=== PATIENT | female | born 1990 | race Caucasian/White ===

== ENCOUNTER 2020-01-02 21:29 | Emergency (ER) | payer SELFPAY ==
[2020-01-02] MEDS ORDERED: Acetaminophen/HYDROcodone 325-10 MG Tab PO ONE (21:30)
[2020-01-02] MEDS ORDERED: Ketorolac 30 MG/ML SDV IVPUSH ONE (22:01)
[2020-01-02] MEDS ORDERED: Sodium Chloride 0.9% 10 ML Syringe FLUSH PRN (22:01)
[2020-01-02] MEDS ORDERED: Lactated Ringers 1,000 ML IV ONE (22:01)
[2020-01-02] MEDS ORDERED: Morphine 4 MG/ML Syringe IVPUSH ONE (22:02)
[2020-01-02] MEDS ORDERED: Ondansetron 4 MG/2 ML SDV IV ONE (22:03)
[2020-01-02 22:18] LABS: ANION GAP 17.3 mEq/L (7-13)
--- NOTE | 2020-01-02 23:23 | CT ---
PROCEDURE INFORMATION: Exam: CT Abdomen And Pelvis Without Contrast Exam date and time: 01/02/2020 11:03 PM Age: 29 years old Clinical indication: Other: Right sided pain; Additional info: Suspected ureterolithiasis TECHNIQUE: Imaging protocol: Computed tomography of the abdomen and pelvis without contrast. Radiation optimization: All CT scans at this facility use at least one of these dose optimization techniques: automated exposure control; mA and/or kV adjustment per patient size (includes targeted exams where dose is matched to clinical indication); or iterative reconstruction. COMPARISON: No relevant prior studies available. FINDINGS: Lungs: Visualized lung bases are clear. Heart: Heart size normal. Mediastinal space: The visualized distal esophagus is normal. Liver: Normal size and contour. No mass lesions. No intrahepatic biliary ductal dilatation. Gallbladder and bile ducts: Normal. No calcified stones. No ductal dilation. Pancreas: Normal. No inflammatory changes or ductal dilation. Spleen: Normal. No splenomegaly. Adrenal glands: Normal. No adrenal mass. Kidneys and ureters: Moderate-severe right-sided hydronephrosis and hydroureter with an 8 x 5 x 5 mm distal right ureteral stone located about 1.5 cm from the right UVJ. Moderate right perinephric stranding and fluid. Punctate 1 mm nonobstructive left renal stone. No left-sided ureteral stones or hydronephrosis. Stomach and bowel: The stomach is grossly normal. The small bowel is normal with no evidence of obstruction. No acute colonic abnormalities. Appendix: The appendix is normal in caliber and demonstrates no evidence of appendicitis. Intraperitoneal space: Small amount of intrapelvic free fluid, within physiologic range for a young woman. No free air. Vasculature: No acute process. No abdominal aortic aneurysm. Lymph nodes: No adenopathy. Urinary bladder: Unremarkable as visualized. Reproductive: Unremarkable as visualized. Bones/joints: No acute osseous abnormalities. Soft tissues: Very small fatty umbilical hernia . No evidence of associated bowel herniation or bowel obstruction. IMPRESSION: 1. There is an 8 x 5 x 5 mm distal right ureteral stone with moderate-severe right-sided hydroureteronephrosis and perinephric stranding. 2. 1 mm nonobstructive left renal stone. 3. Small volume intrapelvic free fluid, within physiologic range for a young woman. 4. Small fatty umbilical hernia.
[2020-01-02] MEDS ORDERED: cefTRIAXone 1 GM in Sodium Chloride 0.9% 50 ML IV ONE (23:56)
--- NOTE | 2020-01-02 23:56 | EDM.PDOC ---
ED HPI GENERAL MEDICAL PROBLEM - General Chief Complaint: Back Pain or Injury Stated Complaint: lower back right side pain, vomiting Time Seen by Provider: 01/02/20 21:40 Source of Information: Reports: Patient - History of Present Illness INITIAL COMMENTS - FREE TEXT/NARRATIVE: Alma is a 29 year old woman who presents with 12 hour history of worsening R flank pain. She has also had nausea and vomiting all day today. She reports no burning with urination, no increased urinary frequency. Alma recently gave to her daughter, is currently . No fevers/chills, no diarrhea or constipation, no hematochezia or melena. Right Flank Pain Score (Numeric/FACES): 7 - Related Data Allergies Allergy/AdvReac Type Severity Reaction Status Date / Time No Known Allergies Allergy Verified 01/02/20 22:00 Home Meds: Home Meds Cefdinir [Omnicef] 300 mg PO BID #14 cap 01/02/20 [Rx] Hydrocodone/Acetaminophen [Hydrocodone-Acetamin 10-325 mg] 0.5 tab PO Q4H PRN #12 tablet 01/02/20 [Rx] Past Medical History HEENT History: Reports: None Cardiovascular History: Reports: None Respiratory History: Reports: None Gastrointestinal History: Reports: None Genitourinary History: Reports: UTI, Recurrent [employer] History: Reports: Musculoskeletal History: Reports: Back Pain, Chronic Neurological History: Reports: None Psychiatric History: Reports: None Endocrine/Metabolic History: Reports: None Hematologic History: Reports: None Immunologic History: Reports: None Oncologic (Cancer) History: Reports: None Dermatologic History: Reports: None - Infectious Disease History Infectious Disease History: Reports: None - Past Surgical History Head Surgeries/Procedures: Reports: None Social & Family History - Family History Family Medical History: No Pertinent Family History - Tobacco Use Tobacco Use Status *Q: Never Tobacco User Second Hand Smoke Exposure: No - Caffeine Use Caffeine Use: Reports: Coffee, Soda, Tea - Recreational Drug Use Recreational Drug Use: No ED ROS GENERAL - Review of Systems Review Of Systems: Comprehensive ROS is negative, except as noted in HPI. ED EXAM, RENAL/ - Physical Exam Exam: See Below Text/Narrative:: General: Alma is a 29 year old woman in no acute distress Oropharynx is clear, mucous membranes are moist Heart: regular rate and rhythm, no murmurs Lungs: clear to ascultation Abdomen: soft, non tender, she does have some mild CVA tenderness on the R with percussion Urinalysis showed 10-20 WBCs and many bacteria, but also many epithelial cells CT stone protocol shows an 8mm obstructing stone in the R ureter, with moderate to severe hydronephrosis and hydroureter on the right. Peripheral IV was started, she was given 1 liter LR bolus as well as 1 gram IV ceftriaxone She was also given 4 mg IV morphine initially, this was repeated 90 minutes later. Course - Vital Signs Last Recorded V/S: Last Vital Signs Temp 37.7 C 01/02/20 21:48 Pulse 102 H 01/02/20 21:48 Resp 18 01/02/20 21:48 BP 138/88 01/02/20 21:48 Pulse Ox 99 01/02/20 21:48 - Orders/Labs/Meds Orders: Active Orders 24 hr Category Date Time Status CULTURE URINE [RM] Routine Lab 01/02/20 21:42 Received Peripheral IV Insertion Adult [OM.PC] Routine Oth 01/02/20 22:01 Ordered Labs: Laboratory Tests 01/02/20 01/02/20 01/02/20 Range/Units 21:42 21:44 21:50 WBC 10.4 H (5.0-10.0) 10^3/uL RBC 4.75 (4.2-5.4) 10^6/uL Hgb 14.1 (12.0-16.0) g/dL Hct 41.7 (37.0-47.0) % MCV 87.8 (80-100) fL MCH 29.7 (27.0-34.0) pg MCHC 33.8 (33.0-35.0) g/dL Plt Count 367 (150-450) 10^3/uL Neut % (Auto) 68.6 (42.2-75.2) % Lymph % (Auto) 20.5 (20.5-50.1) % [place] % (Auto) 9.6 H (2-8) % Eos % (Auto) 1.0 (1.0-3.0) % Baso % (Auto) 0.3 (0.0-1.0) % Sodium (136-145) mmol/L Potassium (3.5-5.1) mmol/L Chloride (98-107) mmol/L Carbon Dioxide (21-32) mmol/L Anion Gap (7-13) mEq/L BUN (7-18) mg/dL Creatinine (0.55-1.02) mg/dL Est Cr Clr Drug Dosing mL/min Estimated GFR (MDRD) BUN/Creatinine Ratio (No establ ref range) Glucose (74-99) mg/dL Calcium (8.5-10.1) mg/dL Total Bilirubin (0.2-1.0) mg/dL AST (15-37) U/L ALT (14-59) U/L Alkaline Phosphatase (46-116) U/L Total Protein (6.4-8.2) g/dL Albumin (3.4-5.0) g/dL Globulin Albumin/Globulin Ratio Urine Color Yellow (YELLOW) Urine Appearance Slightly cloudy (CLEAR) Urine pH 6.0 (5.0-9.0) Ur Specific [place] >= 1.030 (1.005-1.030) Urine Protein 100 H (NEGATIVE) Urine Glucose (UA) Negative (NEGATIVE) Urine Ketones 80 H (NEGATIVE) Urine Occult Blood Large H (NEGATIVE) Urine Nitrite Negative (NEGATIVE) Urine Bilirubin Small H (NEGATIVE) Urine Urobilinogen 0.2 (0.2-1.0) mg/dL Ur Leukocyte Esterase Trace H (NEGATIVE) Urine RBC Semi-packed H /HPF Urine WBC 20-30 H (0-5/HPF) /HPF Ur Epithelial Cells Many H (NOT SEEN) /HPF Urine Bacteria Many H (0-FEW/HPF) /HPF Urine HCG, Qual Negative 01/01/ Range/Units 21:50 WBC (5.0-10.0) 10^3/uL RBC (4.2-5.4) 10^6/uL Hgb (12.0-16.0) g/dL Hct (37.0-47.0) % MCV (80-100) fL MCH (27.0-34.0) pg MCHC (33.0-35.0) g/dL Plt Count (150-450) 10^3/uL Neut % (Auto) (42.2-75.2) % Lymph % (Auto) (20.5-50.1) % [place] % (Auto) (2-8) % Eos % (Auto) (1.0-3.0) % Baso % (Auto) (0.0-1.0) % Sodium 139 (136-145) mmol/L Potassium 4.3 (3.5-5.1) mmol/L Chloride 101 (98-107) mmol/L Carbon Dioxide 25 (21-32) mmol/L Anion Gap 17.3 H (7-13) mEq/L BUN 22 H (7-18) mg/dL Creatinine 1.11 H (0.55-1.02) mg/dL Est Cr Clr Drug Dosing 71.27 mL/min Estimated GFR (MDRD) 59 BUN/Creatinine Ratio 19.8 (No establ ref range) Glucose 88 (74-99) mg/dL Calcium 9.1 (8.5-10.1) mg/dL Total Bilirubin 0.6 (0.2-1.0) mg/dL AST 40 H (15-37) U/L ALT 37 (14-59) U/L Alkaline Phosphatase 78 (46-116) U/L Total Protein 7.8 (6.4-8.2) g/dL Albumin 4.1 (3.4-5.0) g/dL Globulin 3.7 Albumin/Globulin Ratio 1.1 Urine Color (YELLOW) Urine Appearance (CLEAR) Urine pH (5.0-9.0) Ur Specific [place] (1.005-1.030) Urine Protein (NEGATIVE) Urine Glucose (UA) (NEGATIVE) Urine Ketones (NEGATIVE) Urine Occult Blood (NEGATIVE) Urine Nitrite (NEGATIVE) Urine Bilirubin (NEGATIVE) Urine Urobilinogen (0.2-1.0) mg/dL Ur Leukocyte Esterase (NEGATIVE) Urine RBC /HPF Urine WBC (0-5/HPF) /HPF Ur Epithelial Cells (NOT SEEN) /HPF Urine Bacteria (0-FEW/HPF) /HPF Urine HCG, Qual Meds: Medications Discontinued Medications Generic Name Dose Route Start Last Admin Trade Name Freq PRN Reason Stop Dose Admin Hydrocodone Bitart/Acetaminophen Confirm 01/03/20 01:02 01/03/20 01:07 Rachel 325-10 Mg Administered 01/03/20 01:03 Not Given Dose 4 tab .ROUTE .STK-MED ONE Lactated Ringer's 1,000 mls @ 999 mls/hr 01/02/20 22:01 01/02/20 22:24 Ringers, Lactated IV 11/15/20 23:01 999 mls/hr .BOLUS ONE Administration Ceftriaxone Sodium 1 gm/ 50 mls @ 100 mls/hr 01/02/20 23:56 01/03/20 00:03 Sodium Chloride IV 01/03/20 00:25 100 mls/hr ONETIME ONE Administration Ketorolac Tromethamine 30 mg 01/02/20 22:01 01/02/20 22:27 Toradol IVPUSH 01/02/20 22:02 30 mg ONETIME ONE Administration Morphine Sulfate 4 mg 01/02/20 22:02 01/02/20 22:30 Morphine IVPUSH 01/02/20 22:03 4 mg ONETIME ONE Administration Morphine Sulfate 4 mg 01/03/20 00:07 01/03/20 00:11 Morphine IVPUSH 01/03/20 00:08 4 mg ONETIME ONE Administration Ondansetron HCl 4 mg 01/02/20 22:03 01/02/20 22:25 Zofran IV 01/02/20 22:04 4 mg ONETIME ONE Administration Ondansetron HCl 4 mg 01/03/20 01:07 01/03/20 01:09 Zofran Odt PO 01/03/20 01:08 4 mg ONETIME ONE Administration Sodium Chloride 10 ml 01/02/20 22:01 01/02/20 22:34 Saline Flush FLUSH 10 ml ASDIRECTED PRN Administration Keep Vein Open Departure - Departure Time of Disposition: 23:50 Disposition: Home, Self-Care 01 Clinical Impression: Ureterolithiasis, Hydronephrosis due to obstruction of ureter, Hydroureter on right - Discharge Information *PRESCRIPTION DRUG MONITORING PROGRAM REVIEWED*: No *COPY OF PRESCRIPTION DRUG MONITORING REPORT IN PATIENT CHUN: No Prescriptions: Hydrocodone/Acetaminophen [Hydrocodone-Acetamin 10-325 mg] 0.5 tab PO Q4H PRN #12 tablet PRN Reason: Pain Cefdinir [Omnicef] 300 mg PO BID #14 cap Instructions: Kidney Stones, Hydronephrosis Referrals: Pauly Guerra MD [Primary Care Provider] - Forms: ED Department Discharge Additional Instructions: Call [phone] Press 2 to speak with clinic nurse Inform them that Dr. Salinas in Urology wants to see you urgently tomorrow for an obstructing kidney stone Try to push as much fluids as possible Sepsis Event Note (ED) - Evaluation Sepsis Screening Result: No Definite Risk - Focused Exam Vital Signs: Vital Signs Temp Pulse Resp BP Pulse Ox 01/02/20 21:48 37.7 C 102 H 18 138/88 99 - Problem List & Annotations (1) Ureterolithiasis SNOMED Code(s): 68742007 Code(s): N20.1 - CALCULUS OF URETER Status: Acute Annotation/Comment:: Right 8mm stone (2) Hydronephrosis due to obstruction of ureter SNOMED Code(s): 282167759 Code(s): N13.2 - HYDRONEPHROSIS WITH RENAL AND URETERAL CALCULOUS OBSTRUCTION Status: Acute (3) Hydroureter on right SNOMED Code(s): 61794118 Code(s): N13.4 - HYDROURETER Status: Acute - Problem List Review Problem List Initiated/Reviewed/Updated: Yes - My Orders Last 24 Hours: My Active Orders 01/02/20 21:42 CULTURE URINE [RM] Routine 01/02/20 22:01 Peripheral IV Insertion Adult [OM.PC] Routine - Assessment/Plan Last 24 Hours: My Active Orders 01/02/20 21:42 CULTURE URINE [RM] Routine 01/02/20 22:01 Peripheral IV Insertion Adult [OM.PC] Routine Assessment:: 1. 8mm R obstructing ureteral stone with moderate to severe R hydronephrosis and hydroureter Plan: 1. I discussed her case with Dr. Salinas in Urology through [facility] in [place]. He recommended she been seen in clinic first thing tomorrow morning, so he can evaluate her. 2. She was given 1 gram IV ceftriaxone in the ED, I will send her home with omnicef, 300mg BID 3. I will also send her home with hydrocodone/APAP, 10/325, 1/2 to 1 tablet every 4-6 hours as needed
[2020-01-03] MEDS ORDERED: Morphine 4 MG/ML Syringe IVPUSH ONE (00:07)
[2020-01-03] MEDS ORDERED: Acetaminophen/HYDROcodone 325-10 MG Tab ONE (01:02)
[2020-01-03] MEDS ORDERED: Ondansetron 4 MG Tab.DIS PO ONE (01:07)
== END 2020-01-03 01:31 | disposition home or self-care (01) ==
LOC: DL.ED 21:29
DX: N13.2 Hydronephrosis with renal and ureteral calculous obstruction (principal)
CPT/HCPCS: 36415; 74176; 80053; 81001; 81025; 85025; 87086; 87088; 96365; 96375; 96376; 99284; A9270; J0696; J1885; J2270; J2405; J7050; J7120